=== PATIENT | female | born 1970 ===

== ENCOUNTER 2018-12-31 00:41 | Inpatient (IN) ==
[2018-12-31] MEDS ORDERED: guaiFENesin/DM ER 600-30 MG TABLET PO PRN (02:55)
[2018-12-31] MEDS ORDERED: ACETAMINOPHEN 325 MG TABLET PO PRN (02:55)
[2018-12-31] MEDS ORDERED: ONDANSETRON 4 MG/2 ML VIAL IV PRN (02:55)
[2018-12-31] MEDS: ALBUTEROL/IPRATROPIUM 3 ML NEB RESP TX SCH ×6 (03:02→23:43)
[2018-12-31 05:17] LABS: Basophils % 0.2 % (0.0-0.8); Eosinophils # 0.3 10*3/uL (0.0-0.87); Eosinophils % 3.1 % (0.00-10.9); Hematocrit 38.5 VOL% (35.7-47.0); Immature Granulocytes % 0.6 %; Immature Granulocytes Absolute 0.06 #; Lymphocytes # 3.5 10*3/uL (1.4-4.0); Lymphocytes % 37.4 % (21.3-54.2); Mean Corpuscular HGB Conc 31.2 GM/DL (32-36); Mean Corpuscular Volume 90.2 FL (87-102); Mean Platelet Volume 9.9 FL (9.6-12.0); Monocytes % 5.3 % (1.7-12.7); Neutrophils % 53.4 % (38.7-73.9); Platelet Count 216 T/CUMM (130-400); Red Blood Count 4.27 MC/CUMM (3.8-5.5); Red Cell Distribution Width 13.9 % (9.3-17.3); White Blood Count 9.3 T/CUMM (4-12)
[2018-12-31 05:45] LABS: Bilirubin,Total 0.7 MG/DL (0.2-1.0); Calcium 8.3 MG/DL (8.5-10.1); Osmolality,Calculated 287.7 MOS/KG (273-304); Risk Ratio 2.58; Thyroid Stimulating Hormone 2.85 uIU/ml (0.358-3.74); Total Protein 7.5 G/DL (6.4-8.3); VLDL CHOLESTEROL 30.6 MG/DL
[2018-12-31] MEDS: HEPARIN DRIP 25,000 UNITS/500 ML PREMIX IV SCH ×2 (05:56→13:38)
[2018-12-31] MEDS: LISINOPRIL 10 MG TABLET PO SCH (08:14)
[2018-12-31] MEDS: PANTOPRAZOLE 40 MG TABLET PO SCH (08:14)
[2018-12-31] MEDS ORDERED: MAGNESIUM SULF RIDER 4 GM in PREMIX 1 EACH IV PRN (08:27)
[2018-12-31] MEDS ORDERED: MAGNESIUM SULF RIDER 2 GM in PREMIX 1 EACH IV PRN (08:27)
[2018-12-31] MEDS ORDERED: SODIUM CHLOR 0.45% KCL 20 MEQ 20 MEQ/1,000 ML BAG IV SCH (08:30)
[2018-12-31] MEDS: POTASSIUM CHLORIDE 20 MEQ TABLET PO PRN ×4 (09:54→16:16)
[2018-12-31] MEDS ORDERED: HEPARIN 5,000 UNIT/1 ML VIAL IV PRN (11:44)
[2018-12-31] MEDS ORDERED: HEPARIN 5,000 UNIT/1 ML VIAL IV ONE (12:00)
[2018-12-31] MEDS: POTASSIUM BICARB EFFERVESCENT 25 MEQ TABLET PO SCH ×2 (15:07→20:37)
[2019-01-01] MEDS: ALBUTEROL/IPRATROPIUM 3 ML NEB RESP TX SCH ×6 (03:48→23:11)
[2019-01-01] MEDS: HEPARIN DRIP 25,000 UNITS/500 ML PREMIX IV SCH ×2 (04:50→18:43)
[2019-01-01 05:18] LABS: Calcium 8.2 MG/DL (8.5-10.1)
[2019-01-01] MEDS: LISINOPRIL 10 MG TABLET PO SCH (08:32)
[2019-01-01] MEDS: PANTOPRAZOLE 40 MG TABLET PO SCH (08:32)
[2019-01-01] MEDS: POTASSIUM BICARB EFFERVESCENT 25 MEQ TABLET PO SCH (09:08)
[2019-01-01 19:11] LABS: INR 0.9; PT Patient Result 10.3 SECS (9.6-12.2)
[2019-01-01 19:12] LABS: Partial Thromboplastin Time 47.8 SECS (20.8-36.0)
[2019-01-02] MEDS: ALBUTEROL/IPRATROPIUM 3 ML NEB RESP TX SCH ×6 (03:42→23:43)
[2019-01-02] MEDS: HEPARIN DRIP 25,000 UNITS/500 ML PREMIX IV SCH ×2 (06:05→09:45)
[2019-01-02] MEDS: LISINOPRIL 10 MG TABLET PO SCH (08:25)
[2019-01-02] MEDS: PANTOPRAZOLE 40 MG TABLET PO SCH (08:25)
[2019-01-02] MEDS: APIXABAN 5 MG TABLET PO SCH ×2 (12:05→21:58)
[2019-01-02 12:06] LABS: Protein C Activity Plasma 56 % (70 - 150)
[2019-01-02] MEDS ORDERED: guaiFENesin/CODEINE 5 ML LIQUID PO PRN (15:16)
[2019-01-02] MEDS ORDERED: WARFARIN 5 MG TABLET PO SCH (18:00)
[2019-01-03] MEDS: ALBUTEROL/IPRATROPIUM 3 ML NEB RESP TX SCH ×4 (04:20→14:50)
[2019-01-03 04:37] LABS: PT Patient Result 10.9 SECS (9.6-12.2)
[2019-01-03 04:53] LABS: Osmolality,Calculated 279.3 MOS/KG (273-304)
[2019-01-03 04:56] LABS: Basophils % 0.3 % (0.0-0.8); Eosinophils # 0.2 10*3/uL (0.0-0.87); Eosinophils % 3.6 % (0.00-10.9); Hematocrit 39.9 VOL% (35.7-47.0); Hemoglobin 12.6 GM/DL (12.0-16.0); Immature Granulocytes % 0.3 %; Immature Granulocytes Absolute 0.02 #; Lymphocytes # 1.6 10*3/uL (1.4-4.0); Mean Corpuscular HGB Conc 31.6 GM/DL (32-36); Mean Corpuscular Volume 92.1 FL (87-102); Mean Platelet Volume 10.6 FL (9.6-12.0); Monocytes % 5.6 % (1.7-12.7); Neutrophils % 65.2 % (38.7-73.9); Platelet Count 197 T/CUMM (130-400); Red Blood Count 4.33 MC/CUMM (3.8-5.5); Red Cell Distribution Width 13.6 % (9.3-17.3); White Blood Count 6.4 T/CUMM (4-12)
[2019-01-03] MEDS: APIXABAN 5 MG TABLET PO SCH (08:55)
[2019-01-03] MEDS: LISINOPRIL 10 MG TABLET PO SCH (08:55)
[2019-01-03] MEDS: PANTOPRAZOLE 40 MG TABLET PO SCH (08:55)
[2019-01-03 14:06] VITALS: BP 164/94
[2019-01-03 14:17] LABS: Protein S Activity Plasma 105 % (50 - 160)
[2019-01-04 16:51] LABS: F5DNA Reviewed By SEE COMMENTS; Factor V Leiden (R506Q) Mutati Negative (Negative); PTNT Reviewed By SEE COMMENTS
[2019-01-07] MEDS ORDERED: APIXABAN 5 MG TABLET PO SCH (09:00)
== END 2019-01-03 15:54 | disposition home or self-care (01) | DRG 134 ==
LOC: N.TELES 00:48 → SUATTDRO 02:10
PROVIDERS: ADMIT Internal Medicine; ATTEND Internal Medicine

== ENCOUNTER 2019-10-21 01:55 | Inpatient (IN) ==
[2019-10-21] MEDS ORDERED: GLUCAGON 1 MG VIAL IM PRN (06:17)
[2019-10-21] MEDS ORDERED: CALCIUM CARBONATE CHEW 500 MG TABLET PO PRN (06:17)
[2019-10-21] MEDS ORDERED: SIMETHICONE CHEW 125 MG TABLET PO PRN (06:17)
[2019-10-21] MEDS ORDERED: hydrALAZINE 20 MG/1 ML VIAL IV PRN (06:17)
[2019-10-21] MEDS ORDERED: ONDANSETRON 4 MG/2 ML VIAL IV PRN (06:17)
[2019-10-21] MEDS ORDERED: ALBUTEROL 2.5 MG/3 ML NEB RESP TX PRN (06:17)
[2019-10-21] MEDS ORDERED: ALUMINUM/MAGNES/SIMETH MAX STR 30 ML UDCUP PO PRN (06:17)
[2019-10-21] MEDS ORDERED: BISACODYL 5 MG TABLET PO PRN (06:17)
[2019-10-21] MEDS ORDERED: PROMETHAZINE 25 MG/1 ML VIAL IM PRN (06:17)
[2019-10-21] MEDS ORDERED: DEXTROSE 50% 25 GM/50 ML VIAL IV PRN (06:17)
[2019-10-21] MEDS ORDERED: ENOXAPARIN 40 MG/0.4 ML SYRINGE SUBCUT SCH (06:30)
[2019-10-21] MEDS: PANTOPRAZOLE 40 MG VIAL IV SCH (06:44)
[2019-10-21 06:52] LABS: Basophils % 0.2 % (0.0-0.8); Hematocrit 45.8 VOL% (35.7-47.0); Hemoglobin 14.6 GM/DL (12.0-16.0); Immature Granulocytes % 0.6 %; Immature Granulocytes Absolute 0.06 #; Lymphocytes # 2.2 10*3/uL (1.4-4.0); Lymphocytes % 21.8 % (21.3-54.2); Mean Corpuscular HGB Conc 31.9 GM/DL (32-36); Mean Corpuscular Volume 88.1 FL (87-102); Mean Platelet Volume 10.5 FL (9.6-12.0); Monocytes % 5.8 % (1.7-12.7); Neutrophils % 71.6 % (38.7-73.9); Platelet Count 184 T/CUMM (130-400); Red Cell Distribution Width 15.1 % (9.3-17.3); White Blood Count 9.9 T/CUMM (4-12)
[2019-10-21 06:59] LABS: PT Patient Result 10.6 SECS (9.8-11.9)
[2019-10-21] MEDS ORDERED: ALBUTEROL/IPRATROPIUM 3 ML NEB RESP TX SCH (07:00)
[2019-10-21] MEDS ORDERED: ALBUTEROL 2.5 MG/3 ML NEB RESP TX SCH (07:00)
[2019-10-21 07:08] LABS: Bilirubin,Total 0.9 MG/DL (0.2-1.0); Calcium 8.2 MG/DL (8.5-10.1); Ferritin 456.2 ng/ml (8-252); Osmolality,Calculated 265.5 MOS/KG (273-304); Total Protein 9.3 G/DL (6.4-8.3)
[2019-10-21] MEDS: ALBUTEROL INHALER 18 GM INH SCH ×3 (08:24→20:22)
[2019-10-21] MEDS: DOCUSATE SODIUM 100 MG CAPSULE PO SCH ×2 (08:25→20:22)
[2019-10-21] MEDS: APIXABAN 5 MG TABLET PO SCH ×2 (08:25→20:22)
[2019-10-21] MEDS: lisinopriL 10 MG TABLET PO SCH (08:25)
[2019-10-21] MEDS: INSULIN REGULAR 100 UNIT/ML SUBCUT SCH ×4 (08:26→20:22)
[2019-10-21 08:30] LABS: Sedimentation Rate-Westergren 17 MM/HR (0-20)
[2019-10-21] MEDS: ACETAMINOPHEN 325 MG TABLET PO PRN (13:39)
[2019-10-22] MEDS: ALBUTEROL INHALER 18 GM INH SCH ×2 (00:28→08:01)
[2019-10-22 04:34] LABS: Basophils % 0.1 % (0.0-0.8); Hematocrit 40.9 VOL% (35.7-47.0); Hemoglobin 12.7 GM/DL (12.0-16.0); Immature Granulocytes % 0.7 %; Immature Granulocytes Absolute 0.06 #; Lymphocytes # 1.1 10*3/uL (1.4-4.0); Lymphocytes % 12.4 % (21.3-54.2); Mean Corpuscular HGB Conc 31.1 GM/DL (32-36); Mean Corpuscular Volume 90.1 FL (87-102); Monocytes % 4.1 % (1.7-12.7); Neutrophils % 82.7 % (38.7-73.9); Platelet Count 167 T/CUMM (130-400); Red Blood Count 4.54 MC/CUMM (3.8-5.5); Red Cell Distribution Width 15.1 % (9.3-17.3); White Blood Count 9.2 T/CUMM (4-12)
[2019-10-22 04:49] LABS: Allen Test Positive; Pt O2 Delivery Device Other
[2019-10-22 04:50] LABS: ABG Base Excess -0.3 MMOL/L (-2.5-2.5); ABG HCO3 23.9 MMOL/L (20-26); ABG Oxygen Saturation 88.2 % (95-100); ABG PCO2 63.1 MM HG (35-48); ABG PH 7.263 (7.35-7.45); ABG PO2 61.1 MM HG (80-95); ABG TCO2 25.5 MMOL/L (23-27)
[2019-10-22 04:52] LABS: Calcium 7.9 MG/DL (8.5-10.1); Osmolality,Calculated 269.4 MOS/KG (273-304)
[2019-10-22] MEDS: PANTOPRAZOLE 40 MG VIAL IV SCH (05:53)
[2019-10-22] MEDS: INSULIN REGULAR 100 UNIT/ML SUBCUT SCH ×4 (07:37→21:22)
[2019-10-22] MEDS: lisinopriL 10 MG TABLET PO SCH (08:00)
[2019-10-22] MEDS: APIXABAN 5 MG TABLET PO SCH ×2 (08:00→21:21)
[2019-10-22] MEDS: DOCUSATE SODIUM 100 MG CAPSULE PO SCH (08:00)
[2019-10-22] MEDS: PANTOPRAZOLE 40 MG TABLET PO SCH (09:15)
[2019-10-22] MEDS: ACETAMINOPHEN 325 MG TABLET PO PRN (09:15)
[2019-10-22] MEDS ORDERED: REMDESIVIR 200 MG in SODIUM CHLORIDE 0.9% 210 ML IV ONE (12:00)
[2019-10-23 04:58] LABS: Basophils % 0.1 % (0.0-0.8); Hematocrit 39.4 VOL% (35.7-47.0); Hemoglobin 12.9 GM/DL (12.0-16.0); Immature Granulocytes % 0.9 %; Immature Granulocytes Absolute 0.07 #; Lymphocytes # 0.8 10*3/uL (1.4-4.0); Lymphocytes % 10.1 % (21.3-54.2); Mean Corpuscular HGB Conc 32.7 GM/DL (32-36); Mean Corpuscular Volume 86.6 FL (87-102); Mean Platelet Volume 10.5 FL (9.6-12.0); Monocytes % 4.2 % (1.7-12.7); Neutrophils % 84.7 % (38.7-73.9); Platelet Count 171 T/CUMM (130-400); Red Blood Count 4.55 MC/CUMM (3.8-5.5); Red Cell Distribution Width 14.9 % (9.3-17.3)
[2019-10-23 05:13] LABS: Calcium 8.3 MG/DL (8.5-10.1); Osmolality,Calculated 266.5 MOS/KG (273-304)
[2019-10-23] MEDS ORDERED: LORazepam 2 MG/1 ML VIAL IV ONE (07:58)
[2019-10-23] MEDS: APIXABAN 5 MG TABLET PO SCH ×2 (08:15→21:00)
[2019-10-23] MEDS: INSULIN REGULAR 100 UNIT/ML SUBCUT SCH ×3 (09:29→17:53)
[2019-10-23] MEDS ORDERED: cefTRIAXone 1,000 MG in SYRINGE 1 EACH IV SCH (09:30)
[2019-10-23] MEDS: PANTOPRAZOLE 40 MG TABLET PO SCH (09:32)
[2019-10-23] MEDS: AZITHROMYCIN INJ 500 MG in SODIUM CHLORIDE 0.9% 250 ML IV SCH (10:30)
[2019-10-23] MEDS: methylPREDNISolone SOD SUC 40 MG/1 ML VIAL IV SCH ×2 (10:34→17:53)
[2019-10-23] MEDS: MORPHINE 4 MG/1 ML VIAL IV PRN (11:50)
[2019-10-23] MEDS: REMDESIVIR 100 MG in SODIUM CHLORIDE 0.9% 230 ML IV SCH (12:36)
[2019-10-23] MEDS ORDERED: LORazepam 2 MG/1 ML VIAL IV PRN (14:25)
[2019-10-23] MEDS ORDERED: ETOMIDATE 20 MG/10 ML VIAL IV ONE ×2 (18:52→18:58)
[2019-10-23] MEDS ORDERED: MIDAZOLAM 2 MG/2 ML VIAL ONE (18:52)
[2019-10-23] MEDS ORDERED: SUCCINYLCHOLINE 200 MG/10 ML VIAL ONE ×2 (18:53→19:23)
[2019-10-23] MEDS ORDERED: MIDAZOLAM 2 MG/2 ML VIAL IV ONE (18:57)
[2019-10-23] MEDS ORDERED: SUCCINYLCHOLINE 200 MG/10 ML VIAL IV ONE (18:58)
[2019-10-23] MEDS ORDERED: NOREPINEPHRINE 8 MG in SODIUM CHLORIDE 0.9% 242 ML IV PRN (19:56)
[2019-10-23 20:27] LABS: ABG Base Excess 0.3 MMOL/L (-2.5-2.5); ABG HCO3 24.7 MMOL/L (20-26); ABG Oxygen Saturation 97.8 % (95-100); ABG PCO2 48.2 MM HG (35-48); ABG PH 7.348 (7.35-7.45); ABG TCO2 23.5 MMOL/L (23-27); Allen Test Positive; Pt O2 Delivery Device Ventilator
[2019-10-24] MEDS: INSULIN REGULAR 100 UNIT/ML SUBCUT SCH ×4 (00:20→17:27)
[2019-10-24] MEDS: methylPREDNISolone SOD SUC 40 MG/1 ML VIAL IV SCH ×2 (00:58→09:13)
[2019-10-24 04:37] LABS: Basophils % 0.1 % (0.0-0.8); Hematocrit 39.2 VOL% (35.7-47.0); Hemoglobin 12.5 GM/DL (12.0-16.0); Immature Granulocytes Absolute 0.09 #; Lymphocytes # 0.7 10*3/uL (1.4-4.0); Lymphocytes % 7.6 % (21.3-54.2); Mean Corpuscular HGB Conc 31.9 GM/DL (32-36); Mean Corpuscular Volume 88.3 FL (87-102); Mean Platelet Volume 10.5 FL (9.6-12.0); Monocytes % 2.8 % (1.7-12.7); Neutrophils % 88.5 % (38.7-73.9); Platelet Count 239 T/CUMM (130-400); Red Blood Count 4.44 MC/CUMM (3.8-5.5); White Blood Count 8.7 T/CUMM (4-12)
[2019-10-24 04:52] LABS: Calcium 8.5 MG/DL (8.5-10.1); Osmolality,Calculated 278.2 MOS/KG (273-304)
[2019-10-24 07:45] LABS: Albumin 2.2 G/DL (3.4-5.0); Bilirubin,Direct 1.05 MG/DL (0.0-0.20); Bilirubin,Indirect 0.5 MG/DL (0.0-1.0); Bilirubin,Total 1.5 MG/DL (0.2-1.0); Total Protein 7.8 G/DL (6.4-8.3)
[2019-10-24] MEDS: ENOXAPARIN 80 MG/0.8 ML SYRINGE SUBCUT SCH ×2 (08:59→21:21)
[2019-10-24] MEDS: PANTOPRAZOLE 40 MG VIAL IV SCH (09:01)
[2019-10-24 09:02] LABS: ABG Base Excess -1.2 MMOL/L (-2.5-2.5); ABG PCO2 56.4 MM HG (35-48); ABG PH 7.283 (7.35-7.45); ABG PO2 48.7 MM HG (80-95); Pt O2 Delivery Device Ventilator
[2019-10-24] MEDS: cefTRIAXone 1,000 MG in SYRINGE 1 EACH IV SCH (09:09)
[2019-10-24] MEDS: AZITHROMYCIN INJ 500 MG in SODIUM CHLORIDE 0.9% 250 ML IV SCH (09:17)
[2019-10-24] MEDS: SODIUM CHLORIDE 0.9% 1,000 ML IV SCH ×2 (09:18→22:03)
[2019-10-24] MEDS: REMDESIVIR 100 MG in SODIUM CHLORIDE 0.9% 230 ML IV SCH (12:57)
[2019-10-24] MEDS ORDERED: DEXAMETHASONE 4 MG/1 ML VIAL IV SCH (15:30)
[2019-10-24] MEDS: DEXAMETHASONE 4 MG/1 ML VIAL IV SCH (15:31)
[2019-10-24 15:45] LABS: ABG Base Excess -0.6 MMOL/L (-2.5-2.5); ABG HCO3 23.8 MMOL/L (20-26); ABG Oxygen Saturation 94.1 % (95-100); ABG PCO2 51.5 MM HG (35-48); ABG PH 7.316 (7.35-7.45); ABG PO2 76.6 MM HG (80-95); ABG TCO2 23.6 MMOL/L (23-27)
[2019-10-25] MEDS: INSULIN REGULAR 100 UNIT/ML SUBCUT SCH ×4 (00:30→17:56)
[2019-10-25 04:16] LABS: ABG Base Excess -2.6 MMOL/L (-2.5-2.5); ABG HCO3 24.5 MMOL/L (20-26); ABG Oxygen Saturation 95.8 % (95-100); ABG PCO2 52.2 MM HG (35-48); ABG PH 7.289 (7.35-7.45); ABG PO2 90.6 MM HG (80-95); ABG TCO2 26.1 MMOL/L (23-27)
[2019-10-25 04:52] LABS: Basophils % 0.1 % (0.0-0.8); Hematocrit 38.4 VOL% (35.7-47.0); Hemoglobin 12.1 GM/DL (12.0-16.0); Immature Granulocytes % 1.1 %; Immature Granulocytes Absolute 0.15 #; Lymphocytes # 0.9 10*3/uL (1.4-4.0); Lymphocytes % 6.5 % (21.3-54.2); Mean Corpuscular HGB Conc 31.5 GM/DL (32-36); Mean Corpuscular Volume 89.9 FL (87-102); Monocytes % 6.4 % (1.7-12.7); Neutrophils % 85.9 % (38.7-73.9); Platelet Count 320 T/CUMM (130-400); Red Blood Count 4.27 MC/CUMM (3.8-5.5); Red Cell Distribution Width 15.3 % (9.3-17.3); White Blood Count 13.7 T/CUMM (4-12)
[2019-10-25] MEDS: cefTRIAXone 1,000 MG in SYRINGE 1 EACH IV SCH (08:45)
[2019-10-25] MEDS: ENOXAPARIN 80 MG/0.8 ML SYRINGE SUBCUT SCH (08:46)
[2019-10-25] MEDS: MULTIVITAMIN LIQUID (CENTRUM) 60 ML BOTTLE PO SCH (08:46)
[2019-10-25] MEDS: PANTOPRAZOLE 40 MG VIAL IV SCH (08:53)
[2019-10-25] MEDS: AZITHROMYCIN INJ 500 MG in SODIUM CHLORIDE 0.9% 250 ML IV SCH (08:59)
[2019-10-25] MEDS: MENTHOL/ZINC OXIDE OINT 71 GM JAR TOP SCH ×2 (10:01→21:00)
[2019-10-25] MEDS: SODIUM CHLORIDE 0.9% 1,000 ML IV SCH (11:00)
[2019-10-25] MEDS: REMDESIVIR 100 MG in SODIUM CHLORIDE 0.9% 230 ML IV SCH (13:07)
[2019-10-25] MEDS: DEXAMETHASONE 4 MG/1 ML VIAL IV SCH (14:55)
[2019-10-25] MEDS: ENOXAPARIN 150 MG/ML SYRINGE SUBCUT SCH (21:00)
[2019-10-25] MEDS: MORPHINE 4 MG/1 ML VIAL IV PRN (23:34)
[2019-10-26] MEDS: INSULIN REGULAR 100 UNIT/ML SUBCUT SCH ×4 (00:50→19:23)
[2019-10-26] MEDS: SODIUM CHLORIDE 0.9% 1,000 ML IV SCH (03:35)
[2019-10-26 04:10] LABS: ABG Base Excess -0.9 MMOL/L (-2.5-2.5); ABG HCO3 24.9 MMOL/L (20-26); ABG PCO2 44.9 MM HG (35-48); ABG PH 7.361 (7.35-7.45); ABG PO2 75.1 MM HG (80-95); ABG TCO2 26.2 MMOL/L (23-27); Allen Test Positive; Pt O2 Delivery Device Ventilator
[2019-10-26 04:20] LABS: ABG Oxygen Saturation 94.5 % (95-100)
[2019-10-26 04:37] LABS: Basophils % 0.1 % (0.0-0.8); Eosinophils % 0.1 % (0.00-10.9); Hematocrit 35.3 VOL% (35.7-47.0); Hemoglobin 10.8 GM/DL (12.0-16.0); Immature Granulocytes % 0.7 %; Immature Granulocytes Absolute 0.07 #; Lymphocytes % 9.3 % (21.3-54.2); Mean Corpuscular HGB Conc 30.6 GM/DL (32-36); Mean Corpuscular Volume 91.7 FL (87-102); Monocytes % 7.6 % (1.7-12.7); Neutrophils % 82.2 % (38.7-73.9); Platelet Count 244 T/CUMM (130-400); Red Blood Count 3.85 MC/CUMM (3.8-5.5); Red Cell Distribution Width 15.6 % (9.3-17.3); White Blood Count 10.2 T/CUMM (4-12)
[2019-10-26 05:02] LABS: Calcium 7.3 MG/DL (8.5-10.1)
[2019-10-26] MEDS: PANTOPRAZOLE 40 MG VIAL IV SCH (09:23)
[2019-10-26] MEDS: cefTRIAXone 1,000 MG in SYRINGE 1 EACH IV SCH (09:23)
[2019-10-26] MEDS: MULTIVITAMIN LIQUID (CENTRUM) 60 ML BOTTLE PO SCH (09:23)
[2019-10-26] MEDS: ENOXAPARIN 150 MG/ML SYRINGE SUBCUT SCH ×2 (09:23→20:43)
[2019-10-26] MEDS: AZITHROMYCIN INJ 500 MG in SODIUM CHLORIDE 0.9% 250 ML IV SCH (09:27)
[2019-10-26] MEDS: MENTHOL/ZINC OXIDE OINT 71 GM JAR TOP SCH ×2 (09:31→20:43)
[2019-10-26] MEDS: REMDESIVIR 100 MG in SODIUM CHLORIDE 0.9% 230 ML IV SCH (12:35)
[2019-10-26] MEDS: VANCOMYCIN INJ 1,500 MG in SODIUM CHLORIDE 0.9% 500 ML IV SCH (14:32)
[2019-10-26] MEDS: DEXAMETHASONE 4 MG/1 ML VIAL IV SCH (15:14)
[2019-10-26] MEDS: FUROSEMIDE 40 MG/4 ML VIAL IV SCH (18:20)
[2019-10-27] MEDS: INSULIN REGULAR 100 UNIT/ML SUBCUT SCH ×4 (00:51→19:07)
[2019-10-27 04:50] LABS: ABG Base Excess -1.4 MMOL/L (-2.5-2.5); ABG HCO3 24.8 MMOL/L (20-26); ABG Oxygen Saturation 98.2 % (95-100); ABG PH 7.331 (7.35-7.45); ABG PO2 139.3 MM HG (80-95); ABG TCO2 26.3 MMOL/L (23-27); Allen Test Positive; Pt O2 Delivery Device Ventilator
[2019-10-27 05:26] LABS: Basophils % 0.1 % (0.0-0.8); Eosinophils % 0.1 % (0.00-10.9); Hematocrit 34.9 VOL% (35.7-47.0); Hemoglobin 10.7 GM/DL (12.0-16.0); Immature Granulocytes % 1.2 %; Immature Granulocytes Absolute 0.11 #; Lymphocytes # 0.9 10*3/uL (1.4-4.0); Lymphocytes % 9.3 % (21.3-54.2); Mean Corpuscular HGB Conc 30.7 GM/DL (32-36); Mean Corpuscular Volume 91.8 FL (87-102); Mean Platelet Volume 10.2 FL (9.6-12.0); Monocytes % 6.7 % (1.7-12.7); Neutrophils % 82.6 % (38.7-73.9); Platelet Count 230 T/CUMM (130-400); Red Cell Distribution Width 15.7 % (9.3-17.3); White Blood Count 9.5 T/CUMM (4-12)
[2019-10-27 05:53] LABS: Calcium 7.8 MG/DL (8.5-10.1); Osmolality,Calculated 298.7 MOS/KG (273-304)
[2019-10-27] MEDS: FUROSEMIDE 40 MG/4 ML VIAL IV SCH ×2 (10:17→17:40)
[2019-10-27] MEDS: MULTIVITAMIN LIQUID (CENTRUM) 60 ML BOTTLE PO SCH (10:17)
[2019-10-27] MEDS: ENOXAPARIN 150 MG/ML SYRINGE SUBCUT SCH ×2 (10:17→20:45)
[2019-10-27] MEDS: cefTRIAXone 1,000 MG in SYRINGE 1 EACH IV SCH (10:17)
[2019-10-27] MEDS: MENTHOL/ZINC OXIDE OINT 71 GM JAR TOP SCH ×2 (10:17→20:45)
[2019-10-27] MEDS: PANTOPRAZOLE 40 MG VIAL IV SCH (14:18)
[2019-10-27] MEDS: VANCOMYCIN INJ 1,500 MG in SODIUM CHLORIDE 0.9% 500 ML IV SCH (14:18)
[2019-10-27] MEDS: DEXAMETHASONE 4 MG/1 ML VIAL IV SCH (17:40)
[2019-10-28] MEDS: INSULIN REGULAR 100 UNIT/ML SUBCUT SCH ×4 (00:34→17:36)
[2019-10-28 04:59] LABS: ABG Base Excess 1.2 MMOL/L (-2.5-2.5); ABG HCO3 25.5 MMOL/L (20-26); ABG Oxygen Saturation 99.1 % (95-100); ABG PCO2 52.8 MM HG (35-48); ABG PH 7.334 (7.35-7.45); Allen Test Positive; Pt O2 Delivery Device Ventilator
[2019-10-28 06:02] LABS: Basophils % 0.2 % (0.0-0.8); Eosinophils % 0.2 % (0.00-10.9); Hematocrit 35.1 VOL% (35.7-47.0); Immature Granulocytes % 1.7 %; Immature Granulocytes Absolute 0.15 #; Lymphocytes # 0.6 10*3/uL (1.4-4.0); Lymphocytes % 6.7 % (21.3-54.2); Mean Corpuscular HGB Conc 31.3 GM/DL (32-36); Mean Corpuscular Volume 90.5 FL (87-102); Mean Platelet Volume 10.5 FL (9.6-12.0); Neutrophils % 86.2 % (38.7-73.9); Platelet Count 251 T/CUMM (130-400); Red Blood Count 3.88 MC/CUMM (3.8-5.5); Red Cell Distribution Width 15.8 % (9.3-17.3); White Blood Count 8.8 T/CUMM (4-12)
[2019-10-28 06:10] LABS: Calcium 7.9 MG/DL (8.5-10.1); Osmolality,Calculated 305.3 MOS/KG (273-304)
[2019-10-28] MEDS: ENOXAPARIN 150 MG/ML SYRINGE SUBCUT SCH ×2 (10:02→20:53)
[2019-10-28] MEDS: PANTOPRAZOLE 40 MG VIAL IV SCH (10:03)
[2019-10-28] MEDS: FUROSEMIDE 40 MG/4 ML VIAL IV SCH (10:03)
[2019-10-28] MEDS: MENTHOL/ZINC OXIDE OINT 71 GM JAR TOP SCH ×2 (10:04→20:49)
[2019-10-28] MEDS: cefTRIAXone 1,000 MG in SYRINGE 1 EACH IV SCH (10:04)
[2019-10-28] MEDS: MULTIVITAMIN LIQUID (CENTRUM) 60 ML BOTTLE PO SCH (10:04)
[2019-10-28] MEDS ORDERED: FUROSEMIDE 40 MG/4 ML VIAL IV SCH (11:00)
[2019-10-28] MEDS: VANCOMYCIN INJ 1,500 MG in SODIUM CHLORIDE 0.9% 500 ML IV SCH (14:55)
[2019-10-28] MEDS: DEXAMETHASONE 4 MG/1 ML VIAL IV SCH (17:32)
[2019-10-29] MEDS: INSULIN REGULAR 100 UNIT/ML SUBCUT SCH ×4 (00:49→17:37)
[2019-10-29 05:13] LABS: ABG Base Excess 3.2 MMOL/L (-2.5-2.5); ABG HCO3 27.3 MMOL/L (20-26); ABG Oxygen Saturation 97.9 % (95-100); ABG PH 7.388 (7.35-7.45); ABG TCO2 25.9 MMOL/L (23-27); Allen Test Positive; Pt O2 Delivery Device Ventilator
[2019-10-29 05:32] LABS: Basophils % 0.1 % (0.0-0.8); Eosinophils % 0.3 % (0.00-10.9); Hematocrit 35.3 VOL% (35.7-47.0); Hemoglobin 10.7 GM/DL (12.0-16.0); Immature Granulocytes % 5.1 %; Lymphocytes # 0.8 10*3/uL (1.4-4.0); Lymphocytes % 9.5 % (21.3-54.2); Mean Corpuscular HGB Conc 30.3 GM/DL (32-36); Mean Corpuscular Volume 93.1 FL (87-102); Mean Platelet Volume 10.5 FL (9.6-12.0); Monocytes % 9.1 % (1.7-12.7); Neutrophils % 75.9 % (38.7-73.9); Platelet Count 284 T/CUMM (130-400); Red Blood Count 3.79 MC/CUMM (3.8-5.5); Red Cell Distribution Width 15.9 % (9.3-17.3); White Blood Count 7.9 T/CUMM (4-12)
[2019-10-29 05:49] LABS: Osmolality,Calculated 314.9 MOS/KG (273-304)
[2019-10-29 05:55] LABS: Band Neutrophils 2 % (0-10); Lymphocytes 12 % (20-55); Platelet Estimate Adequate; Segmented Neutrophils 79 % (50-85); Total Cells Counted 100
[2019-10-29 05:56] LABS: Hypochromasia Slight; Microcytosis Slight
[2019-10-29 07:18] LABS: Apearance,Urine Slightly Hazy (Clear); Bacteria,Urine Occasional /HPF (Few); Bilirubin,Urine Negative (Negative); Blood, Urine Moderate mg/dL (Negative); Glucose,Urine (UA) Negative (Negative); Ketones,Urine Negative (Negative); Mucus,Urine Occasional /LPF (Occasional); Nitrite,Urine Negative (Negative); Protein,Urine 30 MG/DL; RBC,Urine 163 /HPF (0-4); Squamous Epithelial Cell,Urine Occasional /HPF (0-10); Urine Color Amber (Yellow); Urine Specific Gravity 1.027 (1.001-1.035); WBC,Urine 2 /HPF (0-6)
[2019-10-29] MEDS: cefTRIAXone 1,000 MG in SYRINGE 1 EACH IV SCH (08:44)
[2019-10-29] MEDS: MENTHOL/ZINC OXIDE OINT 71 GM JAR TOP SCH ×2 (08:44→21:06)
[2019-10-29] MEDS: MULTIVITAMIN LIQUID (CENTRUM) 60 ML BOTTLE PO SCH (08:44)
[2019-10-29] MEDS: ENOXAPARIN 150 MG/ML SYRINGE SUBCUT SCH ×2 (08:45→21:06)
[2019-10-29] MEDS: PANTOPRAZOLE 40 MG VIAL IV SCH (08:48)
[2019-10-29] MEDS: VANCOMYCIN INJ 1,500 MG in SODIUM CHLORIDE 0.9% 500 ML IV SCH (16:23)
[2019-10-29] MEDS: DEXAMETHASONE 4 MG/1 ML VIAL IV SCH (16:26)
[2019-10-29] MEDS ORDERED: MORPHINE 4 MG/1 ML VIAL IV PRN (18:15)
[2019-10-29] MEDS: fentaNYL INJ 1,250 MCG in SODIUM CHLORIDE 0.9% 225 ML IV PRN (20:00)
[2019-10-29] MEDS: ACETAMINOPHEN 325 MG TABLET PO PRN (21:06)
[2019-10-30] MEDS: INSULIN REGULAR 100 UNIT/ML SUBCUT SCH ×4 (00:38→18:44)
[2019-10-30 03:44] LABS: ABG Base Excess 2.6 MMOL/L (-2.5-2.5); ABG HCO3 26.7 MMOL/L (20-26); ABG Oxygen Saturation 98.4 % (95-100); ABG PCO2 49.9 MM HG (35-48); ABG PH 7.367 (7.35-7.45); ABG TCO2 26.1 MMOL/L (23-27); Allen Test Positive; Pt O2 Delivery Device Ventilator
[2019-10-30] MEDS: fentaNYL INJ 1,250 MCG in SODIUM CHLORIDE 0.9% 225 ML IV PRN (05:23)
[2019-10-30 05:27] LABS: Basophils % 0.1 % (0.0-0.8); Eosinophils % 0.1 % (0.00-10.9); Hematocrit 31.6 VOL% (35.7-47.0); Hemoglobin 9.8 GM/DL (12.0-16.0); Immature Granulocytes % 2.4 %; Immature Granulocytes Absolute 0.23 #; Lymphocytes % 10.4 % (21.3-54.2); Mean Corpuscular Volume 92.9 FL (87-102); Mean Platelet Volume 10.8 FL (9.6-12.0); Platelet Count 231 T/CUMM (130-400); Red Cell Distribution Width 15.6 % (9.3-17.3); White Blood Count 9.6 T/CUMM (4-12)
[2019-10-30 05:53] LABS: Calcium 7.8 MG/DL (8.5-10.1); Osmolality,Calculated 313.7 MOS/KG (273-304)
[2019-10-30 06:05] LABS: Anisocytosis 1+; Platelet Estimate Normal
[2019-10-30] MEDS ORDERED: SODIUM CHLORIDE 0.9% 1,000 ML IV PRN (08:04)
[2019-10-30] MEDS: ENOXAPARIN 150 MG/ML SYRINGE SUBCUT SCH ×2 (09:08→21:41)
[2019-10-30] MEDS: MENTHOL/ZINC OXIDE OINT 71 GM JAR TOP SCH ×2 (09:09→21:41)
[2019-10-30] MEDS: cefTRIAXone 1,000 MG in SYRINGE 1 EACH IV SCH (09:09)
[2019-10-30] MEDS: MULTIVITAMIN LIQUID (CENTRUM) 60 ML BOTTLE PO SCH (09:09)
[2019-10-30] MEDS: PANTOPRAZOLE 40 MG VIAL IV SCH (09:20)
[2019-10-30] MEDS: ACETAMINOPHEN 325 MG TABLET PO PRN ×3 (10:15→21:40)
[2019-10-30] MEDS: VANCOMYCIN INJ 1,500 MG in SODIUM CHLORIDE 0.9% 500 ML IV SCH (10:30)
[2019-10-30] MEDS: fentaNYL INJ 1,250 MCG in DEXTROSE 5% 225 ML IV PRN ×2 (13:59→21:55)
[2019-10-30] MEDS: DEXAMETHASONE 4 MG/1 ML VIAL IV SCH (17:44)
[2019-10-31] MEDS: INSULIN REGULAR 100 UNIT/ML SUBCUT SCH ×4 (02:24→17:43)
[2019-10-31] MEDS: VANCOMYCIN INJ 1,500 MG in SODIUM CHLORIDE 0.9% 500 ML IV SCH ×2 (02:24→22:22)
[2019-10-31] MEDS: fentaNYL INJ 1,250 MCG in DEXTROSE 5% 225 ML IV PRN ×4 (02:55→22:21)
[2019-10-31 03:57] LABS: ABG Base Excess -1.4 MMOL/L (-2.5-2.5); ABG Oxygen Saturation 98.8 % (95-100); ABG PCO2 49.8 MM HG (35-48); ABG PH 7.318 (7.35-7.45); ABG PO2 170.8 MM HG (80-95); ABG TCO2 26.5 MMOL/L (23-27); Allen Test Positive; Pt O2 Delivery Device Ventilator
[2019-10-31 05:14] LABS: Basophils % 0.1 % (0.0-0.8); Eosinophils % 0.1 % (0.00-10.9); Hematocrit 28.5 VOL% (35.7-47.0); Hemoglobin 8.5 GM/DL (12.0-16.0); Immature Granulocytes % 2.8 %; Immature Granulocytes Absolute 0.34 #; Lymphocytes % 8.5 % (21.3-54.2); Mean Corpuscular HGB Conc 29.8 GM/DL (32-36); Mean Corpuscular Volume 95.3 FL (87-102); Monocytes % 7.8 % (1.7-12.7); Neutrophils % 80.7 % (38.7-73.9); Platelet Count 187 T/CUMM (130-400); Red Blood Count 2.99 MC/CUMM (3.8-5.5); Red Cell Distribution Width 15.6 % (9.3-17.3); White Blood Count 12.2 T/CUMM (4-12)
[2019-10-31 05:39] LABS: Calcium 7.5 MG/DL (8.5-10.1); Osmolality,Calculated 302.8 MOS/KG (273-304)
[2019-10-31] MEDS ORDERED: NOREPINEPHRINE 4 MG/4 ML VIAL IV ONE (09:16)
[2019-10-31] MEDS: cefTRIAXone 1,000 MG in SYRINGE 1 EACH IV SCH (09:30)
[2019-10-31] MEDS: MENTHOL/ZINC OXIDE OINT 71 GM JAR TOP SCH ×2 (09:48→20:29)
[2019-10-31] MEDS: ENOXAPARIN 150 MG/ML SYRINGE SUBCUT SCH ×2 (09:48→20:29)
[2019-10-31] MEDS: MULTIVITAMIN LIQUID (CENTRUM) 60 ML BOTTLE PO SCH (09:48)
[2019-10-31] MEDS: PANTOPRAZOLE 40 MG VIAL IV SCH (09:48)
[2019-10-31] MEDS: NOREPINEPHRINE 8 MG in SODIUM CHLORIDE 0.9% 242 ML IV PRN (10:20)
[2019-10-31 12:35] LABS: ABG Base Excess -1.8 MMOL/L (-2.5-2.5); ABG HCO3 22.9 MMOL/L (20-26); ABG Oxygen Saturation 97.9 % (95-100); ABG PCO2 54.2 MM HG (35-48); ABG PH 7.282 (7.35-7.45); ABG TCO2 23.4 MMOL/L (23-27)
[2019-10-31] MEDS: DEXAMETHASONE 4 MG/1 ML VIAL IV SCH (15:50)
[2019-10-31] MEDS: FUROSEMIDE 40 MG/4 ML VIAL IV SCH (16:00)
[2019-10-31] MEDS ORDERED: VANCOMYCIN INJ 1,500 MG in SODIUM CHLORIDE 0.9% 500 ML IV SCH (22:30)
[2019-11-01] MEDS: INSULIN REGULAR 100 UNIT/ML SUBCUT SCH ×4 (00:42→17:39)
[2019-11-01] MEDS: fentaNYL INJ 1,250 MCG in DEXTROSE 5% 225 ML IV PRN ×2 (05:14→15:16)
[2019-11-01] MEDS: VANCOMYCIN INJ 1,500 MG in SODIUM CHLORIDE 0.9% 500 ML IV SCH (08:50)
[2019-11-01] MEDS: MULTIVITAMIN LIQUID (CENTRUM) 60 ML BOTTLE PO SCH (09:00)
[2019-11-01] MEDS: ENOXAPARIN 150 MG/ML SYRINGE SUBCUT SCH ×2 (09:00→20:47)
[2019-11-01] MEDS: PANTOPRAZOLE 40 MG VIAL IV SCH (09:00)
[2019-11-01] MEDS: MENTHOL/ZINC OXIDE OINT 71 GM JAR TOP SCH ×2 (09:00→20:47)
[2019-11-01 09:02] LABS: Basophils % 0.1 % (0.0-0.8); Eosinophils % 0.1 % (0.00-10.9); Hematocrit 30.5 VOL% (35.7-47.0); Hemoglobin 9.1 GM/DL (12.0-16.0); Immature Granulocytes % 2.7 %; Immature Granulocytes Absolute 0.37 #; Lymphocytes # 1.3 10*3/uL (1.4-4.0); Lymphocytes % 9.3 % (21.3-54.2); Mean Corpuscular HGB Conc 29.8 GM/DL (32-36); Mean Corpuscular Volume 94.4 FL (87-102); Mean Platelet Volume 10.7 FL (9.6-12.0); Monocytes % 8.8 % (1.7-12.7); Platelet Count 251 T/CUMM (130-400); Red Blood Count 3.23 MC/CUMM (3.8-5.5); Red Cell Distribution Width 14.7 % (9.3-17.3); White Blood Count 13.6 T/CUMM (4-12)
[2019-11-01] MEDS: FUROSEMIDE 40 MG/4 ML VIAL IV SCH ×2 (09:10→15:52)
[2019-11-01 09:12] LABS: ABG Base Excess 0.7 MMOL/L (-2.5-2.5); ABG Oxygen Saturation 98.5 % (95-100); ABG PCO2 51.3 MM HG (35-48); ABG PH 7.339 (7.35-7.45); ABG PO2 167.2 MM HG (80-95); ABG TCO2 28.6 MMOL/L (23-27)
[2019-11-01 09:20] LABS: Hypochromasia 1+; Lymphocytes 7 % (20-55); Microcytosis Slight; Platelet Estimate Adequate; Segmented Neutrophils 86 % (50-85); Total Cells Counted 100
[2019-11-01 09:28] LABS: Calcium 7.8 MG/DL (8.5-10.1); Osmolality,Calculated 294.5 MOS/KG (273-304)
[2019-11-01] MEDS: DEXAMETHASONE 4 MG/1 ML VIAL IV SCH (15:50)
[2019-11-02] MEDS: INSULIN REGULAR 100 UNIT/ML SUBCUT SCH ×4 (00:14→17:40)
[2019-11-02 04:29] LABS: ABG Base Excess 3.7 MMOL/L (-2.5-2.5); ABG HCO3 27.7 MMOL/L (20-26); ABG Oxygen Saturation 95.9 % (95-100); ABG PH 7.386 (7.35-7.45); ABG PO2 80.3 MM HG (80-95); ABG TCO2 27.3 MMOL/L (23-27); Allen Test Positive; Pt O2 Delivery Device Ventilator
[2019-11-02 05:10] LABS: Basophils % 0.1 % (0.0-0.8); Eosinophils % 0.1 % (0.00-10.9); Hematocrit 28.5 VOL% (35.7-47.0); Hemoglobin 9.1 GM/DL (12.0-16.0); Immature Granulocytes % 1.7 %; Immature Granulocytes Absolute 0.19 #; Lymphocytes # 1.1 10*3/uL (1.4-4.0); Lymphocytes % 9.7 % (21.3-54.2); Mean Corpuscular HGB Conc 31.9 GM/DL (32-36); Mean Corpuscular Volume 91.1 FL (87-102); Mean Platelet Volume 11.2 FL (9.6-12.0); Monocytes % 6.4 % (1.7-12.7); Platelet Count 225 T/CUMM (130-400); Red Blood Count 3.13 MC/CUMM (3.8-5.5); Red Cell Distribution Width 14.4 % (9.3-17.3); White Blood Count 10.9 T/CUMM (4-12)
[2019-11-02 05:31] LABS: Calcium 8.2 MG/DL (8.5-10.1); Osmolality,Calculated 294.5 MOS/KG (273-304)
[2019-11-02] MEDS: PANTOPRAZOLE 40 MG VIAL IV SCH (08:19)
[2019-11-02] MEDS: FUROSEMIDE 40 MG/4 ML VIAL IV SCH (08:19)
[2019-11-02] MEDS: MENTHOL/ZINC OXIDE OINT 71 GM JAR TOP SCH ×2 (08:20→20:40)
[2019-11-02] MEDS: ENOXAPARIN 150 MG/ML SYRINGE SUBCUT SCH ×2 (08:20→20:40)
[2019-11-02] MEDS: MULTIVITAMIN LIQUID (CENTRUM) 60 ML BOTTLE PO SCH (08:20)
[2019-11-02] MEDS: VANCOMYCIN INJ 1,500 MG in SODIUM CHLORIDE 0.9% 500 ML IV SCH (08:20)
[2019-11-02] MEDS: fentaNYL INJ 1,250 MCG in DEXTROSE 5% 225 ML IV PRN ×2 (13:09→18:18)
[2019-11-02] MEDS: DEXAMETHASONE 4 MG/1 ML VIAL IV SCH (16:16)
[2019-11-03] MEDS: fentaNYL INJ 1,250 MCG in DEXTROSE 5% 225 ML IV PRN ×3 (00:35→21:44)
[2019-11-03] MEDS: INSULIN REGULAR 100 UNIT/ML SUBCUT SCH ×5 (01:22→23:48)
[2019-11-03 04:20] LABS: Allen Test Positive; Pt O2 Delivery Device Ventilator
[2019-11-03 04:21] LABS: ABG Base Excess 3.3 MMOL/L (-2.5-2.5); ABG HCO3 27.3 MMOL/L (20-26); ABG Oxygen Saturation 98.7 % (95-100); ABG PCO2 50.1 MM HG (35-48); ABG PH 7.374 (7.35-7.45); ABG TCO2 26.9 MMOL/L (23-27)
[2019-11-03 05:08] LABS: Basophils % 0.1 % (0.0-0.8); Eosinophils % 0.1 % (0.00-10.9); Hematocrit 28.1 VOL% (35.7-47.0); Hemoglobin 8.9 GM/DL (12.0-16.0); Immature Granulocytes % 2.1 %; Immature Granulocytes Absolute 0.22 #; Lymphocytes # 1.1 10*3/uL (1.4-4.0); Lymphocytes % 10.4 % (21.3-54.2); Mean Corpuscular HGB Conc 31.7 GM/DL (32-36); Mean Corpuscular Volume 89.8 FL (87-102); Monocytes % 5.9 % (1.7-12.7); Neutrophils % 81.4 % (38.7-73.9); Platelet Count 251 T/CUMM (130-400); Red Blood Count 3.13 MC/CUMM (3.8-5.5); Red Cell Distribution Width 14.4 % (9.3-17.3); White Blood Count 10.4 T/CUMM (4-12)
[2019-11-03 05:15] LABS: Calcium 8.1 MG/DL (8.5-10.1); Osmolality,Calculated 290.7 MOS/KG (273-304)
[2019-11-03 05:42] LABS: Lymphocytes 10 % (20-55); Segmented Neutrophils 84 % (50-85); Total Cells Counted 100
[2019-11-03 05:43] LABS: Hypochromasia 2+; Microcytosis Slight; Platelet Estimate Adequate
[2019-11-03] MEDS: MULTIVITAMIN LIQUID (CENTRUM) 60 ML BOTTLE PO SCH (08:08)
[2019-11-03] MEDS: PANTOPRAZOLE 40 MG VIAL IV SCH (08:08)
[2019-11-03] MEDS: MENTHOL/ZINC OXIDE OINT 71 GM JAR TOP SCH ×2 (08:08→20:20)
[2019-11-03] MEDS: ENOXAPARIN 150 MG/ML SYRINGE SUBCUT SCH ×2 (08:08→20:20)
[2019-11-03] MEDS: VANCOMYCIN INJ 1,500 MG in SODIUM CHLORIDE 0.9% 500 ML IV SCH (08:12)
[2019-11-03] MEDS: POTASSIUM CHLORIDE 20 MEQ/15 ML UDCUP PER TUBE SCH ×3 (09:08→17:00)
[2019-11-04 04:12] LABS: Allen Test Positive; Pt O2 Delivery Device Ventilator
[2019-11-04 04:22] LABS: Basophils % 0.2 % (0.0-0.8); Eosinophils # 0.1 10*3/uL (0.0-0.87); Hematocrit 29.4 VOL% (35.7-47.0); Hemoglobin 9.3 GM/DL (12.0-16.0); Immature Granulocytes % 2.8 %; Immature Granulocytes Absolute 0.39 #; Lymphocytes # 1.9 10*3/uL (1.4-4.0); Lymphocytes % 13.5 % (21.3-54.2); Mean Corpuscular HGB Conc 31.6 GM/DL (32-36); Mean Corpuscular Volume 88.6 FL (87-102); Mean Platelet Volume 11.2 FL (9.6-12.0); Monocytes % 7.8 % (1.7-12.7); Neutrophils % 74.7 % (38.7-73.9); Platelet Count 251 T/CUMM (130-400); Red Blood Count 3.32 MC/CUMM (3.8-5.5); Red Cell Distribution Width 14.3 % (9.3-17.3); White Blood Count 14.1 T/CUMM (4-12)
[2019-11-04 04:30] LABS: ABG Base Excess 2.5 MMOL/L (-2.5-2.5); ABG HCO3 27.6 MMOL/L (20-26); ABG PCO2 44.1 MM HG (35-48); ABG PH 7.414 (7.35-7.45); ABG PO2 76.4 MM HG (80-95); ABG TCO2 28.9 MMOL/L (23-27)
[2019-11-04 04:31] LABS: ABG Oxygen Saturation 95.4 % (95-100)
[2019-11-04 04:32] LABS: Calcium 8.1 MG/DL (8.5-10.1); Osmolality,Calculated 290.4 MOS/KG (273-304)
[2019-11-04] MEDS: INSULIN REGULAR 100 UNIT/ML SUBCUT SCH ×3 (05:11→17:20)
[2019-11-04] MEDS: fentaNYL INJ 1,250 MCG in DEXTROSE 5% 225 ML IV PRN ×2 (07:19→16:46)
[2019-11-04] MEDS: ACETAMINOPHEN 325 MG TABLET PO PRN (07:52)
[2019-11-04] MEDS: PANTOPRAZOLE 40 MG VIAL IV SCH (08:00)
[2019-11-04] MEDS: MENTHOL/ZINC OXIDE OINT 71 GM JAR TOP SCH ×2 (08:00→20:45)
[2019-11-04] MEDS: MULTIVITAMIN LIQUID (CENTRUM) 60 ML BOTTLE PO SCH (08:00)
[2019-11-04] MEDS: ENOXAPARIN 150 MG/ML SYRINGE SUBCUT SCH ×2 (08:01→20:45)
[2019-11-04] MEDS: POTASSIUM CHLORIDE RIDER 20 MEQ in PREMIX 1 EACH IV SCH ×2 (09:05→11:33)
[2019-11-04] MEDS: VANCOMYCIN INJ 1,500 MG in SODIUM CHLORIDE 0.9% 500 ML IV SCH (09:39)
[2019-11-04 10:05] LABS: Apearance,Urine CLOUDY (Clear); Bacteria,Urine Occasional /HPF (Few); Bilirubin,Urine Negative (Negative); Blood, Urine Small mg/dL (Negative); Glucose,Urine (UA) Negative (Negative); Ketones,Urine Negative (Negative); Nitrite,Urine Negative (Negative); Protein,Urine 30 MG/DL; RBC,Urine 10 /HPF (0-4); Squamous Epithelial Cell,Urine Occasional /HPF (0-10); Urine Color Amber (Yellow); Urine Specific Gravity 1.017 (1.001-1.035); Urine Urobilinogen < 2.0 EU/DL (0.2-1.0); WBC,Urine 35 /HPF (0-6)
[2019-11-04] MEDS: IBUPROFEN 100 MG/5 ML UDCUP PO PRN (11:32)
[2019-11-04] MEDS: LEVOFLOXACIN INJ 750 MG in PREMIX 1 EACH IV SCH (13:48)
[2019-11-04] MEDS: MEROPENEM 500 MG in SODIUM CHLORIDE 0.9% 100 ML IV SCH ×2 (16:08→22:22)
[2019-11-05] MEDS: INSULIN REGULAR 100 UNIT/ML SUBCUT SCH ×5 (01:18→23:06)
[2019-11-05] MEDS: fentaNYL INJ 1,250 MCG in DEXTROSE 5% 225 ML IV PRN ×4 (02:19→20:03)
[2019-11-05 03:55] LABS: ABG Base Excess 0.7 MMOL/L (-2.5-2.5); ABG HCO3 26.1 MMOL/L (20-26); ABG Oxygen Saturation 93.8 % (95-100); ABG PCO2 45.9 MM HG (35-48); ABG PH 7.373 (7.35-7.45); ABG PO2 71.1 MM HG (80-95); ABG TCO2 27.5 MMOL/L (23-27)
[2019-11-05] MEDS: ACETAMINOPHEN 325 MG TABLET PO PRN ×3 (04:20→21:52)
[2019-11-05 04:51] LABS: Basophils % 0.3 % (0.0-0.8); Eosinophils # 0.2 10*3/uL (0.0-0.87); Hematocrit 28.6 VOL% (35.7-47.0); Hemoglobin 8.9 GM/DL (12.0-16.0); Immature Granulocytes % 3.3 %; Immature Granulocytes Absolute 0.51 #; Lymphocytes # 1.8 10*3/uL (1.4-4.0); Lymphocytes % 11.5 % (21.3-54.2); Mean Corpuscular HGB Conc 31.1 GM/DL (32-36); Mean Platelet Volume 10.9 FL (9.6-12.0); Monocytes % 6.4 % (1.7-12.7); Neutrophils % 77.5 % (38.7-73.9); Platelet Count 233 T/CUMM (130-400); Red Blood Count 3.11 MC/CUMM (3.8-5.5); Red Cell Distribution Width 14.6 % (9.3-17.3); White Blood Count 15.3 T/CUMM (4-12)
[2019-11-05 05:03] LABS: Calcium 8.3 MG/DL (8.5-10.1); Osmolality,Calculated 285.5 MOS/KG (273-304)
[2019-11-05 05:40] LABS: Calcium 7.9 MG/DL (8.5-10.1); Osmolality,Calculated 287.4 MOS/KG (273-304); Prealbumin 16.8 MG/DL (20-40)
[2019-11-05 06:04] LABS: Eosinophils 2 % (0-10); Hypochromasia 1+; Lymphocytes 7 % (20-55); Microcytosis 1+; Platelet Estimate Normal; Segmented Neutrophils 87 % (50-85); Total Cells Counted 100
[2019-11-05] MEDS: MEROPENEM 500 MG in SODIUM CHLORIDE 0.9% 100 ML IV SCH ×3 (06:05→18:09)
[2019-11-05] MEDS: ENOXAPARIN 150 MG/ML SYRINGE SUBCUT SCH ×2 (08:04→21:11)
[2019-11-05] MEDS: MULTIVITAMIN LIQUID (CENTRUM) 60 ML BOTTLE PO SCH (08:04)
[2019-11-05] MEDS: MENTHOL/ZINC OXIDE OINT 71 GM JAR TOP SCH ×2 (08:05→21:08)
[2019-11-05] MEDS: PANTOPRAZOLE 40 MG VIAL IV SCH (08:05)
[2019-11-05] MEDS: VANCOMYCIN INJ 2,000 MG in SODIUM CHLORIDE 0.9% 500 ML IV SCH (09:27)
[2019-11-05] MEDS: LEVOFLOXACIN INJ 750 MG in PREMIX 1 EACH IV SCH (13:06)
[2019-11-05] MEDS: POTASSIUM CHLORIDE RIDER 20 MEQ in PREMIX 1 EACH IV PRN ×2 (15:07→18:09)
[2019-11-05] MEDS ORDERED: MAGNESIUM SULF RIDER 4 GM in PREMIX 1 EACH IV PRN (15:55)
[2019-11-05] MEDS: POTASSIUM CHLORIDE RIDER 10 MEQ in PREMIX 1 EACH IV PRN (21:18)
[2019-11-05] MEDS: MAGNESIUM SULF RIDER 2 GM in PREMIX 1 EACH IV PRN (21:42)
[2019-11-05] MEDS: IBUPROFEN 100 MG/5 ML UDCUP PO PRN (23:30)
[2019-11-06] MEDS: MEROPENEM 500 MG in SODIUM CHLORIDE 0.9% 100 ML IV SCH ×4 (00:01→17:51)
[2019-11-06] MEDS: fentaNYL INJ 1,250 MCG in DEXTROSE 5% 225 ML IV PRN ×5 (00:02→21:54)
[2019-11-06 04:35] LABS: Basophils % 0.1 % (0.0-0.8); Eosinophils # 0.2 10*3/uL (0.0-0.87); Eosinophils % 1.5 % (0.00-10.9); Hematocrit 23.7 VOL% (35.7-47.0); Hemoglobin 7.3 GM/DL (12.0-16.0); Immature Granulocytes % 4.2 %; Immature Granulocytes Absolute 0.57 #; Lymphocytes # 1.7 10*3/uL (1.4-4.0); Lymphocytes % 12.3 % (21.3-54.2); Mean Corpuscular HGB Conc 30.8 GM/DL (32-36); Mean Corpuscular Volume 93.3 FL (87-102); Mean Platelet Volume 10.5 FL (9.6-12.0); Monocytes % 7.4 % (1.7-12.7); Neutrophils % 74.5 % (38.7-73.9); Platelet Count 207 T/CUMM (130-400); Red Blood Count 2.54 MC/CUMM (3.8-5.5); Red Cell Distribution Width 14.9 % (9.3-17.3); White Blood Count 13.6 T/CUMM (4-12)
[2019-11-06] MEDS: ACETAMINOPHEN 325 MG TABLET PO PRN (04:49)
[2019-11-06 04:58] LABS: ABG Base Excess -1.3 MMOL/L (-2.5-2.5); ABG HCO3 23.4 MMOL/L (20-26); ABG Oxygen Saturation 98.6 % (95-100); ABG PCO2 45.4 MM HG (35-48); ABG TCO2 23.1 MMOL/L (23-27); Allen Test Positive; Pt O2 Delivery Device Ventilator
[2019-11-06 05:05] LABS: Albumin 1.6 G/DL (3.4-5.0); Bilirubin,Total 1.2 MG/DL (0.2-1.0); Calcium 7.8 MG/DL (8.5-10.1); Osmolality,Calculated 281.8 MOS/KG (273-304); Total Protein 6.1 G/DL (6.4-8.3)
[2019-11-06 05:24] LABS: Eosinophils 1 % (0-10); Hypochromasia 1+; Lymphocytes 15 % (20-55); Microcytosis 1+; Myelocytes 1 %; Polychromasia Slight; Segmented Neutrophils 76 % (50-85); Total Cells Counted 100
[2019-11-06 05:25] LABS: Platelet Estimate Normal
[2019-11-06] MEDS: POTASSIUM CHLORIDE RIDER 20 MEQ in PREMIX 1 EACH IV PRN ×3 (05:50→17:52)
[2019-11-06] MEDS: INSULIN REGULAR 100 UNIT/ML SUBCUT SCH ×3 (05:50→17:35)
[2019-11-06] MEDS: MENTHOL/ZINC OXIDE OINT 71 GM JAR TOP SCH ×2 (08:04→21:59)
[2019-11-06] MEDS: MULTIVITAMIN LIQUID (CENTRUM) 60 ML BOTTLE PO SCH (08:04)
[2019-11-06] MEDS: ENOXAPARIN 150 MG/ML SYRINGE SUBCUT SCH ×2 (08:04→21:54)
[2019-11-06] MEDS: PANTOPRAZOLE 40 MG VIAL IV SCH (08:05)
[2019-11-06] MEDS: VANCOMYCIN INJ 2,000 MG in SODIUM CHLORIDE 0.9% 500 ML IV SCH (08:05)
[2019-11-06] MEDS: POTASSIUM CHLORIDE RIDER 10 MEQ in PREMIX 1 EACH IV PRN ×2 (10:02→20:05)
[2019-11-07] MEDS: MEROPENEM 500 MG in SODIUM CHLORIDE 0.9% 100 ML IV SCH ×2 (00:25→06:48)
[2019-11-07] MEDS: INSULIN REGULAR 100 UNIT/ML SUBCUT SCH ×4 (03:22→18:35)
[2019-11-07] MEDS: fentaNYL INJ 1,250 MCG in DEXTROSE 5% 225 ML IV PRN ×2 (03:24→08:33)
[2019-11-07 04:34] LABS: ABG Base Excess -6.4 MMOL/L (-2.5-2.5); ABG HCO3 19.2 MMOL/L (20-26); ABG Oxygen Saturation 96.6 % (95-100); ABG PH 7.311 (7.35-7.45); ABG PO2 93.7 MM HG (80-95); ABG TCO2 20.4 MMOL/L (23-27); Allen Test Positive; Pt O2 Delivery Device Ventilator
[2019-11-07 06:40] LABS: Basophils % 0.1 % (0.0-0.8); Eosinophils # 0.3 10*3/uL (0.0-0.87); Hemoglobin 7.3 GM/DL (12.0-16.0); Immature Granulocytes % 3.3 %; Immature Granulocytes Absolute 0.42 #; Lymphocytes # 1.1 10*3/uL (1.4-4.0); Mean Corpuscular HGB Conc 30.4 GM/DL (32-36); Mean Corpuscular Volume 94.9 FL (87-102); Monocytes % 7.4 % (1.7-12.7); Neutrophils % 78.2 % (38.7-73.9); Platelet Count 221 T/CUMM (130-400); Red Blood Count 2.53 MC/CUMM (3.8-5.5); Red Cell Distribution Width 15.2 % (9.3-17.3); White Blood Count 12.7 T/CUMM (4-12)
[2019-11-07 06:52] LABS: Osmolality,Calculated 281.1 MOS/KG (273-304)
[2019-11-07 07:56] VITALS: BP 81/55
[2019-11-07] MEDS: POTASSIUM CHLORIDE RIDER 20 MEQ in PREMIX 1 EACH IV PRN (08:23)
[2019-11-07] MEDS: ENOXAPARIN 150 MG/ML SYRINGE SUBCUT SCH ×2 (08:24→21:06)
[2019-11-07] MEDS: MENTHOL/ZINC OXIDE OINT 71 GM JAR TOP SCH ×2 (08:25→20:27)
[2019-11-07] MEDS: PANTOPRAZOLE 40 MG VIAL IV SCH (08:25)
[2019-11-07] MEDS: MULTIVITAMIN LIQUID (CENTRUM) 60 ML BOTTLE PO SCH (08:26)
[2019-11-07] MEDS ORDERED: COLISTIMETHATE 300 MG in SODIUM CHLORIDE 0.9% 100 ML IV ONE (09:30)
[2019-11-07] MEDS: NOREPINEPHRINE 8 MG in SODIUM CHLORIDE 0.9% 242 ML IV PRN (11:00)
[2019-11-07] MEDS ORDERED: FUROSEMIDE 40 MG/4 ML VIAL IV ONE (11:00)
[2019-11-07] MEDS: ALBUMIN 25% 25 GM in PREMIX 1 EACH IV SCH ×2 (11:40→19:40)
[2019-11-07] MEDS: MEROPENEM 1,000 MG in SODIUM CHLORIDE 0.9% 100 ML IV SCH ×2 (11:56→19:41)
[2019-11-07] MEDS ORDERED: fentaNYL INJ 2,500 MCG in SODIUM CHLORIDE 0.9% 75 ML IV PRN (15:00)
[2019-11-07] MEDS: fentaNYL INJ 2,500 MCG in SODIUM CHLORIDE 0.9% 75 ML IV PRN (15:57)
[2019-11-07] MEDS: ACETAMINOPHEN 325 MG TABLET PO PRN (17:20)
[2019-11-07] MEDS: COLISTIMETHATE IV SCH ×2 (20:25→21:10)
[2019-11-07] MEDS: SODIUM CHLORIDE 0.9% IV SCH ×2 (20:25→21:10)
[2019-11-08] MEDS: ACETAMINOPHEN 325 MG TABLET PO PRN ×5 (00:12→20:16)
[2019-11-08] MEDS: INSULIN REGULAR 100 UNIT/ML SUBCUT SCH ×4 (00:13→17:52)
[2019-11-08] MEDS: NOREPINEPHRINE 8 MG in SODIUM CHLORIDE 0.9% 242 ML IV PRN ×3 (01:21→22:28)
[2019-11-08] MEDS: ALBUMIN 25% 25 GM in PREMIX 1 EACH IV SCH (02:57)
[2019-11-08] MEDS: MEROPENEM 1,000 MG in SODIUM CHLORIDE 0.9% 100 ML IV SCH ×2 (03:48→16:56)
[2019-11-08] MEDS: fentaNYL INJ 2,500 MCG in SODIUM CHLORIDE 0.9% 75 ML IV PRN ×4 (04:04→22:45)
[2019-11-08 04:37] LABS: ABG Base Excess -9.3 MMOL/L (-2.5-2.5); ABG HCO3 17.4 MMOL/L (20-26); ABG Oxygen Saturation 94.7 % (95-100); ABG PCO2 41.7 MM HG (35-48); ABG PH 7.238 (7.35-7.45); ABG PO2 84.1 MM HG (80-95); ABG TCO2 18.7 MMOL/L (23-27)
[2019-11-08] MEDS: IBUPROFEN 100 MG/5 ML UDCUP PO PRN (04:56)
[2019-11-08 05:18] LABS: Basophils % 0.2 % (0.0-0.8); Eosinophils # 0.2 10*3/uL (0.0-0.87); Eosinophils % 1.3 % (0.00-10.9); Hematocrit 23.7 VOL% (35.7-47.0); Hemoglobin 7.2 GM/DL (12.0-16.0); Immature Granulocytes % 4.9 %; Immature Granulocytes Absolute 0.69 #; Lymphocytes # 3.2 10*3/uL (1.4-4.0); Lymphocytes % 22.9 % (21.3-54.2); Mean Corpuscular HGB Conc 30.4 GM/DL (32-36); Mean Corpuscular Volume 93.7 FL (87-102); Mean Platelet Volume 10.6 FL (9.6-12.0); Monocytes % 9.2 % (1.7-12.7); Neutrophils % 61.5 % (38.7-73.9); Platelet Count 239 T/CUMM (130-400); Red Blood Count 2.53 MC/CUMM (3.8-5.5); Red Cell Distribution Width 15.7 % (9.3-17.3)
[2019-11-08 05:28] LABS: Calcium 8.1 MG/DL (8.5-10.1); Osmolality,Calculated 281.4 MOS/KG (273-304)
[2019-11-08 06:09] LABS: Band Neutrophils 1 % (0-10); Eosinophils 2 % (0-10); Hypochromasia 1+; Lymphocytes 22 % (20-55); Metamyelocytes 2 %; Microcytosis 1+; Myelocytes 2 %; Platelet Estimate Normal; Promyelocytes 1 %; Segmented Neutrophils 58 % (50-85); Total Cells Counted 100
[2019-11-08] MEDS ORDERED: SODIUM CHLORIDE 0.9% 500 ML IV ONE (06:27)
[2019-11-08] MEDS ORDERED: SODIUM BICARBONATE 50 MEQ/50 ML VIAL IV ONE ×2 (06:27→22:45)
[2019-11-08] MEDS ORDERED: SODIUM CHLORIDE 0.9% 1,000 ML IV SCH (06:30)
[2019-11-08] MEDS ORDERED: VANCOMYCIN INJ 2,000 MG in SODIUM CHLORIDE 0.9% 500 ML IV PRN (08:00)
[2019-11-08] MEDS: ENOXAPARIN 150 MG/ML SYRINGE SUBCUT SCH ×2 (08:08→20:16)
[2019-11-08] MEDS: MENTHOL/ZINC OXIDE OINT 71 GM JAR TOP SCH ×2 (08:08→20:16)
[2019-11-08] MEDS: PANTOPRAZOLE 40 MG VIAL IV SCH (08:09)
[2019-11-08] MEDS ORDERED: POTASSIUM CHLORIDE 20 MEQ/15 ML UDCUP PER TUBE PRN (08:49)
[2019-11-08] MEDS: MULTIVITAMIN LIQUID (CENTRUM) 60 ML BOTTLE PO SCH (09:46)
[2019-11-08] MEDS ORDERED: DEXAMETHASONE 4 MG/1 ML VIAL IV SCH (10:30)
[2019-11-08] MEDS: COLISTIMETHATE IV SCH ×2 (10:52→22:27)
[2019-11-08] MEDS: SODIUM CHLORIDE 0.9% IV SCH ×2 (10:52→22:27)
[2019-11-08] MEDS: LINEZOLID INJ 600 MG in PREMIX 1 EACH IV SCH (12:22)
[2019-11-08] MEDS: ROCURONIUM 500 MG in SODIUM CHLORIDE 0.9% 500 ML IV PRN (21:33)
[2019-11-08] MEDS ORDERED: METOPROLOL TARTRATE 5 MG/5 ML VIAL IV ONE ×2 (22:03→22:05)
[2019-11-08] MEDS: METOPROLOL TARTRATE 5 MG/5 ML VIAL IV SCH ×2 (22:17→22:24)
[2019-11-08] MEDS ORDERED: PHENYLEPHRINE INJ 80 MG in SODIUM CHLORIDE 0.9% 242 ML IV PRN (22:30)
[2019-11-08] MEDS ORDERED: PHENYLEPHRINE DRIP 40 MG/250 ML PREMIX IV PRN (22:34)
[2019-11-08 22:37] LABS: Calcium 7.4 MG/DL (8.5-10.1); Osmolality,Calculated 289.5 MOS/KG (273-304)
[2019-11-08] MEDS ORDERED: PHENYLEPHRINE INJ 160 MG in SODIUM CHLORIDE 0.9% 234 ML IV PRN (22:42)
[2019-11-08] MEDS: MAGNESIUM SULF RIDER 2 GM in PREMIX 1 EACH IV PRN (23:05)
[2019-11-09] MEDS ORDERED: NOREPINEPHRINE 16 MG in SODIUM CHLORIDE 0.9% 234 ML IV PRN
[2019-11-09] MEDS: INSULIN REGULAR 100 UNIT/ML SUBCUT SCH ×2 (00:16→05:01)
[2019-11-09] MEDS: ACETAMINOPHEN 325 MG TABLET PO PRN (00:45)
[2019-11-09] MEDS: LINEZOLID INJ 600 MG in PREMIX 1 EACH IV SCH (00:45)
[2019-11-09 03:08] LABS: ABG HCO3 11.3 MMOL/L (20-26); ABG Oxygen Saturation 92.1 % (95-100); ABG PCO2 47.4 MM HG (35-48); ABG PO2 84.1 MM HG (80-95); ABG TCO2 12.8 MMOL/L (23-27); Allen Test Positive; Pt O2 Delivery Device Ventilator
[2019-11-09] MEDS ORDERED: SODIUM BICARBONATE 50 MEQ/50 ML VIAL IV ONE (03:26)
[2019-11-09] MEDS ORDERED: SODIUM BICARB INJ 150 MEQ in STERILE WATER INJ 850 ML IV SCH (03:30)
[2019-11-09 04:14] LABS: Basophils # 0.1 10*3/uL (0.0-0.2); Basophils % 0.2 % (0.0-0.8); Eosinophils # 0.1 10*3/uL (0.0-0.87); Eosinophils % 0.5 % (0.00-10.9); Hematocrit 27.9 VOL% (35.7-47.0); Hemoglobin 8.5 GM/DL (12.0-16.0); Immature Granulocytes Absolute 2.26 #; Lymphocytes # 3.5 10*3/uL (1.4-4.0); Lymphocytes % 12.2 % (21.3-54.2); Mean Corpuscular HGB Conc 30.5 GM/DL (32-36); Mean Corpuscular Volume 93.9 FL (87-102); Mean Platelet Volume 11.3 FL (9.6-12.0); Monocytes % 6.9 % (1.7-12.7); NRBC # 0.26 10*3/uL; Neutrophils % 72.2 % (38.7-73.9); Platelet Count 128 T/CUMM (130-400); Red Blood Count 2.97 MC/CUMM (3.8-5.5); Red Cell Distribution Width 15.9 % (9.3-17.3); White Blood Count 28.4 T/CUMM (4-12)
[2019-11-09] MEDS: MEROPENEM 1,000 MG in SODIUM CHLORIDE 0.9% 100 ML IV SCH (04:15)
[2019-11-09 04:42] LABS: Albumin 2.2 G/DL (3.4-5.0); Bilirubin,Total 2.4 MG/DL (0.2-1.0); Calcium 7.3 MG/DL (8.5-10.1); Osmolality,Calculated 288.5 MOS/KG (273-304)
[2019-11-09] MEDS: fentaNYL INJ 2,500 MCG in SODIUM CHLORIDE 0.9% 75 ML IV PRN (04:49)
[2019-11-09 04:56] LABS: Ferritin 25551.6 ng/ml (8-252)
[2019-11-09 05:13] LABS: Band Neutrophils 12 % (0-10); Lymphocytes 17 % (20-55); Metamyelocytes 6 %; Nucleated Red Blood Cells 3 (0-5); Segmented Neutrophils 62 % (50-85); Total Cells Counted 100
[2019-11-09 05:14] LABS: Hypochromasia Slight; Microcytosis 1+; Platelet Estimate Normal; Polychromasia Few
[2019-11-09 05:15] LABS: Stomatocytes Slight
[2019-11-09] MEDS: ROCURONIUM 500 MG in SODIUM CHLORIDE 0.9% 500 ML IV PRN (06:42)
== END 2019-11-09 08:37 | disposition expired | DRG 720 ==
LOC: N.CC 04:42 → SUATTDRO 04:42
PROVIDERS: ADMIT Internal Medicine; ATTEND Family Medicine